=== PATIENT | male | born 1985 | race Caucasian/White ===

== ENCOUNTER 2022-07-26 10:58 | Emergency (ER) | payer MEDICAID ==
[~2022-07-26] VITALS: Ht 162.6 cm; Wt 81.8 kg
[2022-07-26 11:09] VITALS: BP 138/86
[2022-07-26] MEDS ORDERED: LEVO-65 PO (13:44)
== END 2022-07-26 13:51 | disposition home or self-care (01) ==
LOC: ER 11:00
DX: H66.41 Suppurative otitis media, unspecified, right ear (principal); H61.892 Other specified disorders of left external ear; F17.200 Nicotine dependence, unspecified, uncomplicated; F12.90 Cannabis use, unspecified, uncomplicated; Z79.899 Other long term (current) drug therapy
CPT/HCPCS: 99283